=== PATIENT | male | born 1950 | race Caucasian/White ===

== ENCOUNTER 2021-07-11 13:10 | Inpatient (IN) ==
[2021-07-11] MEDS ORDERED: methylPREDNISolone 125 mg 2 ML VIAL IV ONE (14:37)
[2021-07-11] MEDS ORDERED: Albuterol (2.5 MG) 0.5 % CONC 0.5 ML NEB.SOLN INH ONE (14:37)
[2021-07-11] MEDS ORDERED: guaiFENesin/CODIENE 100mg/10mg 5 ML UDC PO ONE (14:40)
[2021-07-11] MEDS ORDERED: Lactated Ringers 1000 ml BAG 1,000 ML IV ONE ×2 (14:40→15:18)
[2021-07-11] MEDS ORDERED: Diltiazem IV push/loading dose 5 MG/ML 5 ML vial (25 mg) IV SLOW PU ONE (15:04)
[2021-07-11 15:44] LABS: ABS Basophils 0.1 10^3/ul (0-0.2); ABS Monocytes 0.8 10^3/ul (0-0.8); Eosinophil % 0.4 %; Hematocrit 41 % (42-52); Hemoglobin 14.1 g/dL (14.0-18.0); Lymphocyte % 9.5 %; Mean Corpuscular HGB Conc 35 g/dL (31-36); Mean Corpuscular Hemoglobin 30 pg (27-31); Mean Corpuscular Volume 86 fL (80-94); Mean Platelet Volume 8.2 fL (7.4-10.4); Platelet Count 218 10^3/uL (150-450); Red Blood Count 4.77 10^6 /uL (4.18-5.48); Red Cell Distribution Width 14 % (10-15); White Blood Count 11.1 10^3/uL (3.5-10.8)
[2021-07-11 15:56] LABS: ALT 11 U/L (7-52); AST 14 U/L (13-39); Albumin/Globulin Ratio 1.2 (1-3); Alkaline Phosphatase 67 U/L (35-149); Anion Gap 9 mmol/L (2-11); Blood Urea Nitrogen 13 mg/dL (6-24); CO2 Carbon Dioxide 24 mmol/L (22-32); Calcium 9.1 mg/dL (8.6-10.3); Chloride 103 mmol/L (101-111); Globulin 3.4 g/dL (2-4); Glucose 115 mg/dL (70-100); Potassium 3.6 mmol/L (3.5-5.0); Sodium 136 mmol/L (135-145); Total Protein 7.4 g/dL (6.4-8.9)
[2021-07-11 15:57] LABS: Influenza A Molecular Negative (Negative); Influenza B Molecular Negative (Negative)
[2021-07-11] MEDS ORDERED: Diltiazem IV BAG D5W Premix 125 MG/125 ML BAG IV SCH (16:00)
[2021-07-11 16:04] LABS: Rapid COVID-19 Molecular Undetected (Undetected)
[2021-07-11] MEDS ORDERED: Iohexol 350 (CONTRAST) 500 ML MDV IV ONE (16:05)
[2021-07-11] MEDS ORDERED: Metoprolol Tartrate 5 mg VIAL 5 ml VIAL (1 mg/ml) IV ONE (17:34)
[2021-07-11 17:57] LABS: PCO2 Arterial 34 mmHg (35-45); PO2 Arterial 66 mmHg (80-100)
[2021-07-11] MEDS ORDERED: Furosemide 40 mg/4 ml IV VIAL IV ONE (18:07)
[2021-07-11] MEDS ORDERED: Potassium Chlor 20 meq TAB.ER PO ONE (20:18)
[2021-07-11] MEDS ORDERED: Azithromycin 500 mg/250 ml NS 500 MG/250 ML BAG IVPB ONE (20:32)
[2021-07-11 21:10] LABS: Magnesium 1.7 mg/dL (1.9-2.7)
[2021-07-11] MEDS ORDERED: Magnesium Sulfate IV 3 GM in NS 0.9% 100 ml BAG 100 ML IVPB ONE (21:13)
[2021-07-11 22:29] LABS: Troponin I 0.01 ng/mL (<0.03)
[2021-07-11] MEDS: cefTRIAXone 1 gm/50 mL NS BAG 1 GM/50 ML BAG IVPB SCH (22:35)
[2021-07-11] MEDS: Albuterol HFA INHALER 8 gm MDI INH PRN (22:59)
[2021-07-12] MEDS: Fluticasone NASAL SPRAY 50MCG 16 gm SPRAY BTL INTRANASAL SCH ×2 (00:57→09:38)
[2021-07-12 05:56] LABS: ABS Lymphocytes 0.9 10^3/ul (1.0-4.8); ABS Monocytes 0.3 10^3/ul (0-0.8); ABS Neutrophils 12.4 10^3/ul (1.5-7.7); Hematocrit 40 % (42-52); Hemoglobin 13.5 g/dL (14.0-18.0); Lymphocyte % 6.7 %; Mean Corpuscular HGB Conc 34 g/dL (31-36); Mean Corpuscular Hemoglobin 29 pg (27-31); Mean Corpuscular Volume 87 fL (80-94); Mean Platelet Volume 8.5 fL (7.4-10.4); Platelet Count 242 10^3/uL (150-450); Red Blood Count 4.61 10^6 /uL (4.18-5.48); Red Cell Distribution Width 14 % (10-15); White Blood Count 13.6 10^3/uL (3.5-10.8)
[2021-07-12] MEDS ORDERED: Enoxaparin 100 MG/ML SYR SUBCUT SCH (06:00)
[2021-07-12 06:07] LABS: Calcium 9.2 mg/dL (8.6-10.3); Magnesium 2.6 mg/dL (1.9-2.7); Phosphorus 2.2 mg/dL (2.5-5.0); Potassium 4.2 mmol/L (3.5-5.0)
[2021-07-12] MEDS: Albuterol HFA INHALER 8 gm MDI INH PRN ×2 (07:27→12:25)
[2021-07-12] MEDS: DULoxetine DR 60 mg CAP PO SCH (08:06)
[2021-07-12] MEDS: Sucralfate 1 gm SUSP 1 GM/10 ML UDC PO SCH ×3 (08:07→19:49)
[2021-07-12] MEDS ORDERED: CMCS:FLUTICAS/UMECLI/VILANT 100-62.5-25 MDI (NF) INH SCH (09:00)
[2021-07-12] MEDS: Acetaminop/Codeine 300mg/30mg TAB PO PRN ×3 (09:03→19:54)
[2021-07-12] MEDS ORDERED: Perflutren Lipid Microsphere 3 ML VIAL ONE (09:17)
[2021-07-12] MEDS ORDERED: Albuterol/Ipratropium NEB.SOL (2.5/0.5 MG) 3 ML NEB.SOLN INH PRN (17:09)
[2021-07-12] MEDS ORDERED: Metoprolol Tartrate 5 mg VIAL 5 ml VIAL (1 mg/ml) IV ONE (17:12)
[2021-07-12] MEDS: methylPREDNISolone SOD 40 mg/ml 1 ml VIAL IV SCH (17:35)
[2021-07-12] MEDS: cefTRIAXone 1 gm/50 mL NS BAG 1 GM/50 ML BAG IVPB SCH (19:50)
[2021-07-12] MEDS: Albuterol/Ipratropium NEB.SOL (2.5/0.5 MG) 3 ML NEB.SOLN INH PRN (21:47)
[2021-07-13] MEDS: Benzocaine/Menthol LOZ PO PRN ×2 (02:11→20:20)
[2021-07-13] MEDS: Acetaminop/Codeine 300mg/30mg TAB PO PRN ×4 (02:12→20:20)
[2021-07-13] MEDS: methylPREDNISolone SOD 40 mg/ml 1 ml VIAL IV SCH ×3 (02:12→17:39)
[2021-07-13] MEDS ORDERED: Morphine 2 MG/ML SYRINGE IV ONE (05:12)
[2021-07-13 05:15] LABS: ABS Lymphocytes 0.9 10^3/ul (1.0-4.8); ABS Monocytes 0.5 10^3/ul (0-0.8); ABS Neutrophils 15.7 10^3/ul (1.5-7.7); Hematocrit 40 % (42-52); Hemoglobin 13.4 g/dL (14.0-18.0); Lymphocyte % 5.1 %; Mean Corpuscular HGB Conc 33 g/dL (31-36); Mean Corpuscular Hemoglobin 29 pg (27-31); Mean Corpuscular Volume 86 fL (80-94); Platelet Count 308 10^3/uL (150-450); Red Blood Count 4.68 10^6 /uL (4.18-5.48); Red Cell Distribution Width 14 % (10-15); White Blood Count 17.1 10^3/uL (3.5-10.8)
[2021-07-13 05:32] LABS: Calcium 9.2 mg/dL (8.6-10.3); Magnesium 2.3 mg/dL (1.9-2.7); Potassium 4.7 mmol/L (3.5-5.0)
[2021-07-13] MEDS: Albuterol/Ipratropium NEB.SOL (2.5/0.5 MG) 3 ML NEB.SOLN INH PRN (05:32)
[2021-07-13 06:30] LABS: Troponin I 0.01 ng/mL (<0.03)
[2021-07-13] MEDS: Fluticasone NASAL SPRAY 50MCG 16 gm SPRAY BTL INTRANASAL SCH (08:33)
[2021-07-13] MEDS: DULoxetine DR 60 mg CAP PO SCH (08:33)
[2021-07-13] MEDS: Sucralfate 1 gm SUSP 1 GM/10 ML UDC PO SCH ×2 (09:09→17:37)
[2021-07-13] MEDS: Albuterol HFA INHALER 8 gm MDI INH PRN ×2 (11:52→15:53)
[2021-07-13] MEDS ORDERED: VERAPAMIL 2.5 MG/ML 2 ML VIAL ** 5 mg/2 ml IV PUSH ONE (12:17)
[2021-07-13] MEDS ORDERED: Furosemide 40 mg/4 ml IV VIAL IV SLOW PU ONE (12:24)
[2021-07-13] MEDS: guaiFENesin/CODIENE 100mg/10mg 5 ML UDC PO PRN ×2 (13:00→20:20)
[2021-07-13] MEDS: VERAPAMIL IV SCH ×2 (18:11→22:30)
[2021-07-13] MEDS: D5W IV SCH ×2 (18:11→22:30)
[2021-07-13] MEDS ORDERED: Albuterol/Ipratropium NEB.SOL (2.5/0.5 MG) 3 ML NEB.SOLN INH PRN (18:16)
[2021-07-13] MEDS: cefTRIAXone 1 gm/50 mL NS BAG 1 GM/50 ML BAG IVPB SCH (20:21)
[2021-07-13] MEDS: Albuterol/Ipratropium NEB.SOL (2.5/0.5 MG) 3 ML NEB.SOLN INH SCH (21:58)
[2021-07-13] MEDS ORDERED: Albuterol/Ipratropium NEB.SOL (2.5/0.5 MG) 3 ML NEB.SOLN ONE (23:53)
[2021-07-14] MEDS ORDERED: Al Hydrox/Mg Hydrox/Simet LIQ 30 ML UDC PO PRN (00:27)
[2021-07-14] MEDS ORDERED: Magnesium Hydroxide LIQ 30 ML UDC PO PRN (00:27)
[2021-07-14] MEDS: Albuterol/Ipratropium NEB.SOL (2.5/0.5 MG) 3 ML NEB.SOLN INH SCH ×7 (00:48→23:50)
[2021-07-14] MEDS: Polyethylene Glycol 3350 17 GM PACKET PO SCH ×2 (02:20→09:58)
[2021-07-14] MEDS: methylPREDNISolone SOD 40 mg/ml 1 ml VIAL IV SCH ×3 (02:21→16:14)
[2021-07-14 05:19] LABS: Calcium 9.3 mg/dL (8.6-10.3); Magnesium 2.3 mg/dL (1.9-2.7); Phosphorus 4.2 mg/dL (2.5-5.0); Potassium 4.5 mmol/L (3.5-5.0)
[2021-07-14 05:38] LABS: ABS Lymphocytes 0.7 10^3/ul (1.0-4.8); ABS Monocytes 0.7 10^3/ul (0-0.8); ABS Neutrophils 13.7 10^3/ul (1.5-7.7); Hematocrit 39 % (42-52); Hemoglobin 13.2 g/dL (14.0-18.0); Lymphocyte % 4.7 %; Mean Corpuscular HGB Conc 34 g/dL (31-36); Mean Corpuscular Hemoglobin 29 pg (27-31); Mean Corpuscular Volume 87 fL (80-94); Mean Platelet Volume 8.8 fL (7.4-10.4); Platelet Count 293 10^3/uL (150-450); Red Blood Count 4.53 10^6 /uL (4.18-5.48); Red Cell Distribution Width 14 % (10-15); White Blood Count 15.1 10^3/uL (3.5-10.8)
[2021-07-14] MEDS ORDERED: fentaNYL 100 mcg/2 ml 50 MCG/ML VIAL ONE (07:50)
[2021-07-14] MEDS ORDERED: Midazolam 5 mg/5 ml VIAL 1 mg/ml 5 ml VIAL (5 mg) ONE (07:50)
[2021-07-14] MEDS ORDERED: Naloxone 0.4 mg VIAL 0.4 mg/ml 1 ml VIAL ONE (07:50)
[2021-07-14] MEDS ORDERED: Flumazenil 0.5 mg/5 ml 0.1 MG/ML 5 ml VIAL ONE (07:51)
[2021-07-14] MEDS ORDERED: Furosemide 40 mg/4 ml IV VIAL ONE (09:05)
[2021-07-14] MEDS: DULoxetine DR 60 mg CAP PO SCH (09:57)
[2021-07-14] MEDS: Fluticasone NASAL SPRAY 50MCG 16 gm SPRAY BTL INTRANASAL SCH (09:58)
[2021-07-14] MEDS: Sucralfate 1 gm SUSP 1 GM/10 ML UDC PO SCH ×3 (09:58→16:14)
[2021-07-14] MEDS: guaiFENesin/CODIENE 100mg/10mg 5 ML UDC PO PRN (11:55)
[2021-07-14] MEDS: Magnesium Hydroxide LIQ 30 ML UDC PO SCH (12:23)
[2021-07-14] MEDS: Acetaminop/Codeine 300mg/30mg TAB PO PRN ×2 (16:14→21:58)
[2021-07-14] MEDS: Benzocaine/Menthol LOZ PO PRN (16:15)
[2021-07-14] MEDS: cefTRIAXone 1 gm/50 mL NS BAG 1 GM/50 ML BAG IVPB SCH (22:00)
[2021-07-15] MEDS: methylPREDNISolone SOD 40 mg/ml 1 ml VIAL IV SCH ×2 (02:51→08:51)
[2021-07-15] MEDS: Albuterol/Ipratropium NEB.SOL (2.5/0.5 MG) 3 ML NEB.SOLN INH SCH ×4 (03:15→12:13)
[2021-07-15] MEDS: Acetaminop/Codeine 300mg/30mg TAB PO PRN ×4 (04:43→21:20)
[2021-07-15 04:45] LABS: Hematocrit 40 % (42-52); Hemoglobin 13.7 g/dL (14.0-18.0); Mean Corpuscular HGB Conc 34 g/dL (31-36); Mean Corpuscular Hemoglobin 29 pg (27-31); Mean Corpuscular Volume 86 fL (80-94); Mean Platelet Volume 7.8 fL (7.4-10.4); Platelet Count 254 10^3/uL (150-450); Red Blood Count 4.65 10^6 /uL (4.18-5.48); Red Cell Distribution Width 14 % (10-15); White Blood Count 11.2 10^3/uL (3.5-10.8)
[2021-07-15 05:01] LABS: Calcium 8.9 mg/dL (8.6-10.3); Magnesium 2.7 mg/dL (1.9-2.7); Phosphorus 3.9 mg/dL (2.5-5.0); Potassium 4.1 mmol/L (3.5-5.0)
[2021-07-15] MEDS: Benzocaine/Menthol LOZ PO PRN ×2 (05:34→23:14)
[2021-07-15 06:07] LABS: ABS Lymphocytes 0.8 10^3/ul (1.0-4.8); ABS Monocytes 0.7 10^3/ul (0-0.8); ABS Neutrophils 9.6 10^3/ul (1.5-7.7); Eosinophil % 0.1 %; Lymphocyte % 7.1 %; Nucleated Red Blood Cells % 0.1
[2021-07-15] MEDS: DULoxetine DR 60 mg CAP PO SCH (08:51)
[2021-07-15] MEDS: Sucralfate 1 gm SUSP 1 GM/10 ML UDC PO SCH ×3 (08:51→16:54)
[2021-07-15] MEDS: Fluticasone NASAL SPRAY 50MCG 16 gm SPRAY BTL INTRANASAL SCH (08:51)
[2021-07-15] MEDS: Magnesium Hydroxide LIQ 30 ML UDC PO SCH (08:52)
[2021-07-15] MEDS: Polyethylene Glycol 3350 17 GM PACKET PO SCH (08:52)
[2021-07-15] MEDS: FLUTICAS/UMECLI/VILANT 100-62.5-25 MDI (NF) INH SCH (11:38)
[2021-07-15] MEDS: Albuterol/Ipratropium NEB.SOL (2.5/0.5 MG) 3 ML NEB.SOLN INH PRN (15:28)
[2021-07-15] MEDS: cefTRIAXone 1 gm/50 mL NS BAG 1 GM/50 ML BAG IVPB SCH (21:05)
[2021-07-15] MEDS: guaiFENesin/CODIENE 100mg/10mg 5 ML UDC PO PRN (23:14)
[2021-07-16] MEDS: Albuterol HFA INHALER 8 gm MDI INH PRN ×2 (00:21→08:31)
[2021-07-16 05:52] LABS: Hematocrit 41 % (42-52); Hemoglobin 13.9 g/dL (14.0-18.0); Mean Corpuscular HGB Conc 34 g/dL (31-36); Mean Corpuscular Hemoglobin 30 pg (27-31); Mean Corpuscular Volume 86 fL (80-94); Mean Platelet Volume 7.5 fL (7.4-10.4); Platelet Count 236 10^3/uL (150-450); Red Blood Count 4.73 10^6 /uL (4.18-5.48); Red Cell Distribution Width 14 % (10-15); White Blood Count 11.9 10^3/uL (3.5-10.8)
[2021-07-16 06:10] LABS: Calcium 8.7 mg/dL (8.6-10.3); Magnesium 2.7 mg/dL (1.9-2.7); Phosphorus 2.9 mg/dL (2.5-5.0); Potassium 4.2 mmol/L (3.5-5.0)
[2021-07-16 06:30] LABS: ABS Basophils 0.1 10^3/ul (0-0.2); ABS Lymphocytes 1.3 10^3/ul (1.0-4.8); ABS Monocytes 1.3 10^3/ul (0-0.8); ABS Neutrophils 9.2 10^3/ul (1.5-7.7); Eosinophil % 0.1 %; Lymphocyte % 11.1 %; Nucleated Red Blood Cells % 0.2
[2021-07-16] MEDS: DULoxetine DR 60 mg CAP PO SCH (07:43)
[2021-07-16] MEDS: Polyethylene Glycol 3350 17 GM PACKET PO SCH (07:44)
[2021-07-16] MEDS: Fluticasone NASAL SPRAY 50MCG 16 gm SPRAY BTL INTRANASAL SCH (07:44)
[2021-07-16] MEDS: Sucralfate 1 gm SUSP 1 GM/10 ML UDC PO SCH ×3 (07:44→16:28)
[2021-07-16] MEDS: Magnesium Hydroxide LIQ 30 ML UDC PO SCH (07:44)
[2021-07-16] MEDS: Acetaminop/Codeine 300mg/30mg TAB PO PRN ×3 (07:48→18:18)
[2021-07-16] MEDS: FLUTICAS/UMECLI/VILANT 100-62.5-25 MDI (NF) INH SCH (08:31)
[2021-07-16] MEDS: Albuterol/Ipratropium NEB.SOL (2.5/0.5 MG) 3 ML NEB.SOLN INH PRN ×2 (14:09→21:49)
[2021-07-16] MEDS: guaiFENesin/CODIENE 100mg/10mg 5 ML UDC PO PRN (20:21)
[2021-07-16] MEDS: cefTRIAXone 1 gm/50 mL NS BAG 1 GM/50 ML BAG IVPB SCH (20:21)
[2021-07-17] MEDS: Magnesium Hydroxide LIQ 30 ML UDC PO SCH (07:53)
[2021-07-17] MEDS: Fluticasone NASAL SPRAY 50MCG 16 gm SPRAY BTL INTRANASAL SCH (07:53)
[2021-07-17] MEDS: Sucralfate 1 gm SUSP 1 GM/10 ML UDC PO SCH (07:53)
[2021-07-17] MEDS: DULoxetine DR 60 mg CAP PO SCH (07:54)
[2021-07-17] MEDS: Acetaminop/Codeine 300mg/30mg TAB PO PRN (07:55)
[2021-07-17] MEDS: Albuterol/Ipratropium NEB.SOL (2.5/0.5 MG) 3 ML NEB.SOLN INH PRN (08:00)
[2021-07-17] MEDS: Polyethylene Glycol 3350 17 GM PACKET PO SCH (08:06)
[2021-07-17] MEDS ORDERED: Aspirin EC 81 mg TAB.EC (enteric coated) PO SCH (09:00)
[2021-07-17] MEDS: Albuterol HFA INHALER 8 gm MDI INH PRN (09:25)
[2021-07-17] MEDS: FLUTICAS/UMECLI/VILANT 100-62.5-25 MDI (NF) INH SCH (09:26)
[2021-07-17 14:25] VITALS: BP 147/66
== END 2021-07-17 14:25 | disposition home or self-care (01) | DRG 201 ==
LOC: ED 13:10 → ICU 20:30 → SUATTDRO 20:30 → ICU 20:57 → MEDTELE 07-15 17:53
PROVIDERS: ADMIT Surgery Surgical Critical Care; ATTEND Internal Medicine

== ENCOUNTER 2022-04-13 07:24 | Observation (INO) ==
[2022-04-13] MEDS ORDERED: Albuterol/Ipratropium NEB.SOL (2.5/0.5 MG) 3 ML NEB.SOLN INH ONE ×3 (07:49→09:55)
[2022-04-13 08:04] LABS: Hematocrit 39 % (42-52); Hemoglobin 12.7 g/dL (14.0-18.0); Mean Corpuscular HGB Conc 32 g/dL (31-36); Mean Corpuscular Hemoglobin 25 pg (27-31); Mean Corpuscular Volume 78 fL (80-94); Mean Platelet Volume 7.2 fL (7.4-10.4); Platelet Count 259 10^3/uL (150-450); Red Blood Count 5.07 10^6 /uL (4.18-5.48); Red Cell Distribution Width 17 % (10-15); White Blood Count 10.6 10^3/uL (3.5-10.8)
[2022-04-13] MEDS ORDERED: Acetaminophen IV 1 GM/100ML 1,000 MG/100 ML BAG IV ONE (08:28)
[2022-04-13] MEDS ORDERED: methylPREDNISolone SOD SUCC 125 mg 2 ML VIAL IV ONE (08:28)
[2022-04-13] MEDS ORDERED: Morphine 4 MG/ML VIAL (1 ml) IV ONE ×2 (08:28→09:41)
[2022-04-13] MEDS ORDERED: NS 0.9% 1000 ml BAG 1,000 ML IV SCH ×2 (08:30→16:18)
[2022-04-13 08:40] LABS: Albumin 3.9 g/dL (3.2-5.2); Albumin/Globulin Ratio 1.4 (1-3); Calcium 9.6 mg/dL (8.6-10.3); Globulin 2.7 g/dL (2-4); Potassium 4.3 mmol/L (3.5-5.0); Total Bilirubin 0.5 mg/dL (0.2-1.0); Total Protein 6.6 g/dL (6.4-8.9); eGFR CKD-EPI 65.6 (>60)
[2022-04-13 08:44] LABS: ABS Basophils 0.1 10^3/ul (0-0.2); ABS Eosinophils 0.1 10^3/ul (0-0.6); ABS Lymphocytes 1.8 10^3/ul (1.0-4.8); ABS Monocytes 0.5 10^3/ul (0-0.8); ABS Neutrophils 8.1 10^3/ul (1.5-7.7); Eosinophil % 1.1 %; Lymphocyte % 16.9 %; Nucleated Red Blood Cells % 0.1
[2022-04-13 10:12] LABS: High Sensitivity Troponin 1 Hr 19 pg/mL (<20)
[2022-04-13] MEDS ORDERED: Iohexol 350 (CONTRAST) 500 ML MDV IV ONE (11:46)
[2022-04-13] MEDS ORDERED: fentaNYL 100 mcg/2 ml 50 MCG/ML VIAL IV SLOW PU ONE (11:46)
[2022-04-13] MEDS ORDERED: Albuterol HFA INHALER 8 gm MDI INH PRN (14:19)
[2022-04-13] MEDS ORDERED: HYDROCODONE HOMATROPINE PO PRN (14:28)
[2022-04-13] MEDS ORDERED: Albuterol/Ipratropium NEB.SOL (2.5/0.5 MG) 3 ML NEB.SOLN INH PRN (14:28)
[2022-04-13] MEDS: Aspirin EC 81 mg TAB.EC (enteric coated) PO SCH (15:03)
[2022-04-13] MEDS: Sucralfate 1 gm SUSP 1 GM/10 ML UDC PO SCH (15:04)
[2022-04-13] MEDS: FLUTICAS/UMECLI/VILANT 100-62.5-25 MDI (NF) INH SCH (15:04)
[2022-04-13] MEDS ORDERED: fentaNYL 100 mcg/2 ml 50 MCG/ML VIAL IV SLOW PU PRN (16:20)
[2022-04-13 16:45] LABS: C Reactive Protein 7.52 mg/L (<8.01)
[2022-04-13] MEDS ORDERED: Furosemide 20 mg/2 ml IV VIAL IV ONE (21:17)
[2022-04-13] MEDS ORDERED: Saline NASAL SPRAY 0.65% BTL BOTH NARES PRN (21:18)
[2022-04-13] MEDS: Fluticasone NASAL SPRAY 50MCG 16 gm SPRAY BTL INTRANASAL SCH (22:03)
[2022-04-13] MEDS: Albuterol/Ipratropium NEB.SOL (2.5/0.5 MG) 3 ML NEB.SOLN INH SCH (23:34)
[2022-04-14] MEDS: Sucralfate 1 gm SUSP 1 GM/10 ML UDC PO SCH ×3 (00:15→13:50)
[2022-04-14] MEDS: Albuterol/Ipratropium NEB.SOL (2.5/0.5 MG) 3 ML NEB.SOLN INH SCH ×4 (03:10→15:16)
[2022-04-14 06:04] LABS: PCO2 Arterial 42 mmHg (35-45); PO2 Arterial 120 mmHg (80-100)
[2022-04-14 06:59] LABS: ABS Lymphocytes 0.5 10^3/ul (1.0-4.8); ABS Monocytes 0.2 10^3/ul (0-0.8); ABS Neutrophils 10.5 10^3/ul (1.5-7.7); Hematocrit 34 % (42-52); Hemoglobin 11.1 g/dL (14.0-18.0); Lymphocyte % 4.3 %; Mean Corpuscular HGB Conc 32 g/dL (31-36); Mean Corpuscular Hemoglobin 25 pg (27-31); Mean Corpuscular Volume 78 fL (80-94); Mean Platelet Volume 7.7 fL (7.4-10.4); Platelet Count 233 10^3/uL (150-450); Red Blood Count 4.42 10^6 /uL (4.18-5.48); Red Cell Distribution Width 17 % (10-15); White Blood Count 11.2 10^3/uL (3.5-10.8)
[2022-04-14 07:11] LABS: Albumin 3.6 g/dL (3.2-5.2); Albumin/Globulin Ratio 1.6 (1-3); Calcium 9.2 mg/dL (8.6-10.3); Globulin 2.3 g/dL (2-4); Potassium 4.8 mmol/L (3.5-5.0); Total Bilirubin 0.4 mg/dL (0.2-1.0); Total Protein 5.9 g/dL (6.4-8.9); eGFR CKD-EPI 66.2 (>60)
[2022-04-14] MEDS: FLUTICAS/UMECLI/VILANT 100-62.5-25 MDI (NF) INH SCH (07:17)
[2022-04-14] MEDS: Fluticasone NASAL SPRAY 50MCG 16 gm SPRAY BTL INTRANASAL SCH (09:05)
[2022-04-14] MEDS: Aspirin EC 81 mg TAB.EC (enteric coated) PO SCH (09:05)
[2022-04-14 15:56] VITALS: BP 134/67
== END 2022-04-14 17:55 | disposition home or self-care (01) ==
LOC: ED 07:24 → MED 19:51 → INTOOBSV 20:03
PROVIDERS: ADMIT Internal Medicine; ATTEND Internal Medicine

== ENCOUNTER 2023-09-07 13:52 | Inpatient (IN) ==
[2023-09-07] MEDS ORDERED: Albuterol 2.5mg/3 ml (0.083%) NEB.SOLN INH ONE ×2 (14:31→14:49)
[2023-09-07] MEDS ORDERED: methylPREDNISolone SOD SUCC 125 mg 2 ML VIAL IV ONE (14:31)
[2023-09-07 14:46] LABS: Hemoglobin 15.6 g/dL (13.2-16.3); Mean Corpuscular Hemoglobin 25.4 pg (27-33); Mean Corpuscular Hgb Conc 33.2 g/dL (31-36); Mean Corpuscular Volume 76.5 fL (80-97); Mean Platelet Volume 8.3 fL (7.5-11.2); Platelet Count 243 10^3/uL (150-450); Red Blood Count 6.15 10^6/uL (4.06-5.63); Red Cell Distribution Width 18.5 % (12-17); White Blood Count 14.2 10^3/uL (3.6-10.2)
[2023-09-07 15:05] LABS: Albumin 4.6 g/dL (3.2-5.2); Albumin/Globulin Ratio 1.2 (1-3); Calcium 9.4 mg/dL (8.6-10.3); Creatinine, Serum 1.83 mg/dL (0.67-1.17); Globulin 3.9 g/dL (2-4); Potassium 4.3 mmol/L (3.5-5.0); Total Protein 8.5 g/dL (6.4-8.9); eGFR CKD-EPI 38.2 (>60)
[2023-09-07 15:36] LABS: ABS Lymphocytes 0.7 10^3/uL (1.0-4.8); ABS Monocytes 1.8 10^3/uL (0.0-1.1); ABS Neutrophils 11.7 10^3/uL (1.5-7.6); ABS Nucleated RBC 0.02 10^3/ul; Lymphocyte % 4.9 %; Microcytosis 1+; Nucleated Red Blood Cells % 0.2 %/100WBC (0.0-0.8)
[2023-09-07 16:53] LABS: PCO2 Arterial 29 mmHg (35-45); PO2 Arterial 88 mmHg (80-100)
[2023-09-07] MEDS ORDERED: Lactated Ringers 1000 ml BAG 1,000 ML IV ONE (17:11)
[2023-09-07] MEDS ORDERED: cefTRIAXone 1 gm/50 mL D5W 1 GM/50 ML BAG IV SCH (17:15)
[2023-09-07] MEDS ORDERED: DOXYcycline 100 MG in NS 0.9% 250 ml 250 ML IVPB ONE (18:00)
[2023-09-07 18:20] LABS: Resp Rate 22
[2023-09-07 18:21] LABS: PCO2 Arterial 33 mmHg (35-45); PO2 Arterial 314 mmHg (80-100)
[2023-09-07 18:28] LABS: Urine Potassium Concentration 73.3 mmol/L
[2023-09-07 19:06] LABS: Osmolality Serum 285 mOsm/kg (275-295)
[2023-09-07 19:06] LABS: Urine Osmo 497 mOsm/kg (150-1150)
[2023-09-07] MEDS: cefTRIAXone 2 gm/50 mL D5W 2 GM/50 ML BAG IV SCH (19:51)
[2023-09-07 20:47] LABS: Urine Appearance Cloudy; Urine Bilirubin Negative (Negative); Urine Blood 1+ (Negative); Urine Color Amber; Urine Glucose Negative (Negative); Urine Ketones Negative (Negative); Urine Nitrite Negative (Negative); Urine Protein 3+(>=500 mg/dL) (Negative); Urine Specific Gravity 1.019 (1.002-1.030); Urine Urobilinogen Negative (Negative)
[2023-09-07 20:57] LABS: Urine Bacteria Absent (Absent); Urine Red Blood Cell Trace(0-2/hpf) (Absent); Urine White Blood Cell Trace(0-5/hpf) (Absent)
[2023-09-07] MEDS: Albuterol 2.5mg/3 ml (0.083%) NEB.SOLN INH SCH (21:13)
[2023-09-07] MEDS ORDERED: Ondansetron 4 mg VIAL 2 MG/ML 2 ml VIAL IV ONE (21:27)
[2023-09-07] MEDS: methylPREDNISolone SOD SUCC 40 mg/ml 1 ml VIAL IV SCH (22:51)
[2023-09-07] MEDS: Pantoprazole VIAL 40 MG VIAL IV SCH (22:56)
[2023-09-08] MEDS: Albuterol 2.5mg/3 ml (0.083%) NEB.SOLN INH SCH ×4 (01:56→19:37)
[2023-09-08] MEDS: methylPREDNISolone SOD SUCC 40 mg/ml 1 ml VIAL IV SCH ×3 (05:41→19:59)
[2023-09-08 05:55] LABS: ABS Lymphocytes 0.5 10^3/uL (1.0-4.8); ABS Monocytes 0.6 10^3/uL (0.0-1.1); ABS Neutrophils 9.2 10^3/uL (1.5-7.6); ABS Nucleated RBC 0.01 10^3/ul; Hematocrit 42.2 % (38-53); Hemoglobin 14.1 g/dL (13.2-16.3); Lymphocyte % 5.3 %; Mean Corpuscular Hemoglobin 25.5 pg (27-33); Mean Corpuscular Hgb Conc 33.4 g/dL (31-36); Mean Corpuscular Volume 76.3 fL (80-97); Mean Platelet Volume 8.3 fL (7.5-11.2); Nucleated Red Blood Cells % 0.1 %/100WBC (0.0-0.8); Platelet Count 208 10^3/uL (150-450); Red Blood Count 5.52 10^6/uL (4.06-5.63); White Blood Count 10.3 10^3/uL (3.6-10.2)
[2023-09-08 06:13] LABS: Albumin 3.8 g/dL (3.2-5.2); Albumin/Globulin Ratio 1.1 (1-3); C Reactive Protein 276.43 mg/L (<8.01); Calcium 8.5 mg/dL (8.6-10.3); Creatinine, Serum 2.04 mg/dL (0.67-1.17); Globulin 3.6 g/dL (2-4); Magnesium 2.3 mg/dL (1.9-2.7); Potassium 4.3 mmol/L (3.5-5.0); Total Bilirubin 0.5 mg/dL (0.2-1.0); Total Protein 7.4 g/dL (6.4-8.9); eGFR CKD-EPI 33.6 (>60)
[2023-09-08] MEDS: HYDROcodone/ACET. 7.5/325 LIQ 15 ML UDC PO PRN (15:34)
[2023-09-08] MEDS: cefTRIAXone 2 gm/50 mL D5W 2 GM/50 ML BAG IV SCH (18:23)
[2023-09-08] MEDS ORDERED: Lactated Ringers 1000 ml BAG 1,000 ML IV SCH (19:00)
[2023-09-08] MEDS: Pantoprazole VIAL 40 MG VIAL IV SCH (21:36)
[2023-09-09] MEDS: HYDROcodone/ACET. 7.5/325 LIQ 15 ML UDC PO PRN ×2 (00:25→08:21)
[2023-09-09] MEDS: Albuterol 2.5mg/3 ml (0.083%) NEB.SOLN INH SCH ×4 (00:58→19:10)
[2023-09-09 04:37] LABS: Calcium 8.3 mg/dL (8.6-10.3); Creatinine, Serum 2.33 mg/dL (0.67-1.17); eGFR CKD-EPI 28.6 (>60)
[2023-09-09] MEDS: methylPREDNISolone SOD SUCC 40 mg/ml 1 ml VIAL IV SCH ×2 (08:19→21:08)
[2023-09-09] MEDS ORDERED: Sulfur Hexaflouride MICROSPHR 25 MG VIAL ONE (10:38)
[2023-09-09] MEDS: cefTRIAXone 2 gm/50 mL D5W 2 GM/50 ML BAG IV SCH (18:00)
[2023-09-09 18:41] LABS: Calcium 8.6 mg/dL (8.6-10.3); Creatinine, Serum 2.32 mg/dL (0.67-1.17); Potassium 4.2 mmol/L (3.5-5.0); eGFR CKD-EPI 28.8 (>60)
[2023-09-09] MEDS: Pantoprazole VIAL 40 MG VIAL IV SCH (21:08)
[2023-09-10] MEDS: Albuterol 2.5mg/3 ml (0.083%) NEB.SOLN INH SCH ×4 (00:59→20:23)
[2023-09-10 07:10] LABS: Hematocrit 35.8 % (38-53); Hemoglobin 12.1 g/dL (13.2-16.3); Mean Corpuscular Hemoglobin 25.3 pg (27-33); Mean Corpuscular Hgb Conc 33.7 g/dL (31-36); Mean Corpuscular Volume 75.2 fL (80-97); Mean Platelet Volume 8.7 fL (7.5-11.2); Platelet Count 159 10^3/uL (150-450); Red Blood Count 4.76 10^6/uL (4.06-5.63); Red Cell Distribution Width 17.8 % (12-17); White Blood Count 7.2 10^3/uL (3.6-10.2)
[2023-09-10 07:22] LABS: Albumin 3.6 g/dL (3.2-5.2); Albumin/Globulin Ratio 1.2 (1-3); Calcium 8.5 mg/dL (8.6-10.3); Creatinine, Serum 2.12 mg/dL (0.67-1.17); Globulin 3.1 g/dL (2-4); Magnesium 3.1 mg/dL (1.9-2.7); Potassium 4.4 mmol/L (3.5-5.0); Total Bilirubin 0.3 mg/dL (0.2-1.0); Total Protein 6.7 g/dL (6.4-8.9); eGFR CKD-EPI 32.1 (>60)
[2023-09-10] MEDS: methylPREDNISolone SOD SUCC 40 mg/ml 1 ml VIAL IV SCH ×2 (07:59→19:21)
[2023-09-10 08:26] LABS: ABS Lymphocytes 0.5 10^3/uL (1.0-4.8); ABS Monocytes 0.4 10^3/uL (0.0-1.1); ABS Neutrophils 6.3 10^3/uL (1.5-7.6); ABS Nucleated RBC 0.01 10^3/ul; Lymphocyte % 6.7 %; Nucleated Red Blood Cells % 0.2 %/100WBC (0.0-0.8)
[2023-09-10 08:27] LABS: RBC Morphology Normal (Normal)
[2023-09-10] MEDS ORDERED: CHLORPHENIRAMINE PO PRN (10:49)
[2023-09-10] MEDS ORDERED: [UNRECOGNIZED DRUG - OTHER] PO PRN (10:49)
[2023-09-10] MEDS ORDERED: HYDROCODONE PO PRN (10:49)
[2023-09-10] MEDS ORDERED: HYDROcodone/ACET. 7.5/325 LIQ 15 ML UDC PO ONE (13:18)
[2023-09-10] MEDS: cefTRIAXone 2 gm/50 mL D5W 2 GM/50 ML BAG IV SCH (18:38)
[2023-09-10] MEDS: HYDROcodone/ACET. 7.5/325 LIQ 15 ML UDC PO PRN (19:21)
[2023-09-10] MEDS: Pantoprazole VIAL 40 MG VIAL IV SCH (22:25)
[2023-09-11] MEDS: Albuterol 2.5mg/3 ml (0.083%) NEB.SOLN INH SCH ×4 (01:28→20:00)
[2023-09-11] MEDS: HYDROcodone/ACET. 7.5/325 LIQ 15 ML UDC PO PRN ×2 (05:41→17:26)
[2023-09-11 06:13] LABS: Hematocrit 35.6 % (38-53); Mean Corpuscular Hemoglobin 25.3 pg (27-33); Mean Corpuscular Hgb Conc 33.6 g/dL (31-36); Mean Corpuscular Volume 75.2 fL (80-97); Mean Platelet Volume 8.5 fL (7.5-11.2); Platelet Count 174 10^3/uL (150-450); Red Blood Count 4.74 10^6/uL (4.06-5.63); Red Cell Distribution Width 18.3 % (12-17); White Blood Count 8.6 10^3/uL (3.6-10.2)
[2023-09-11 06:28] LABS: Calcium 8.9 mg/dL (8.6-10.3); Creatinine, Serum 1.93 mg/dL (0.67-1.17); Magnesium 3.4 mg/dL (1.9-2.7); Potassium 4.3 mmol/L (3.5-5.0); eGFR CKD-EPI 35.9 (>60)
[2023-09-11 06:34] LABS: ABS Lymphocytes 0.6 10^3/uL (1.0-4.8); ABS Monocytes 0.5 10^3/uL (0.0-1.1); ABS Neutrophils 7.6 10^3/uL (1.5-7.6); ABS Nucleated RBC 0.01 10^3/ul; Lymphocyte % 6.5 %; Nucleated Red Blood Cells % 0.2 %/100WBC (0.0-0.8)
[2023-09-11 06:35] LABS: Microcytosis 1+
[2023-09-11] MEDS: methylPREDNISolone SOD SUCC 40 mg/ml 1 ml VIAL IV SCH ×2 (08:25→20:09)
[2023-09-11] MEDS: cefTRIAXone 2 gm/50 mL D5W 2 GM/50 ML BAG IV SCH (18:17)
[2023-09-11] MEDS: Pantoprazole VIAL 40 MG VIAL IV SCH (20:09)
[2023-09-12] MEDS: Albuterol 2.5mg/3 ml (0.083%) NEB.SOLN INH SCH ×2 (01:42→07:36)
[2023-09-12 05:56] LABS: Calcium 8.5 mg/dL (8.6-10.3); Creatinine, Serum 1.45 mg/dL (0.67-1.17); Magnesium 3.1 mg/dL (1.9-2.7); Potassium 4.5 mmol/L (3.5-5.0); eGFR CKD-EPI 50.6 (>60)
[2023-09-12 06:02] LABS: CKMB ng/mL 3.6 ng/mL (0.6-6.3)
[2023-09-12] MEDS: HYDROcodone/ACET. 7.5/325 LIQ 15 ML UDC PO PRN ×2 (06:32→17:30)
[2023-09-12] MEDS: methylPREDNISolone SOD SUCC 40 mg/ml 1 ml VIAL IV SCH ×2 (07:49→21:32)
[2023-09-12] MEDS: Dextran 70/Hypromellose Tears Eye Drops 15 ml BTL (for Artificials Tears) BOTH EYES PRN ×3 (12:37→21:45)
[2023-09-12] MEDS ORDERED: Polyethylene Glycol 3350 17 GM PACKET PO PRN (13:06)
[2023-09-12] MEDS ORDERED: Nystatin SUSPENSION 100,000 UNITS/ML UDC SWISH SPIT ONE (13:35)
[2023-09-12] MEDS: Senna TAB 8.6 mg TAB PO PRN ×2 (14:07→14:11)
[2023-09-12] MEDS: cefTRIAXone 2 gm/50 mL D5W 2 GM/50 ML BAG IV SCH (17:32)
[2023-09-12] MEDS: Pantoprazole VIAL 40 MG VIAL IV SCH (21:37)
[2023-09-13] MEDS: Albuterol 2.5mg/3 ml (0.083%) NEB.SOLN INH PRN ×2 (01:44→11:24)
[2023-09-13 06:12] LABS: Hematocrit 36.7 % (38-53); Hemoglobin 12.2 g/dL (13.2-16.3); Mean Corpuscular Hemoglobin 25.1 pg (27-33); Mean Corpuscular Hgb Conc 33.1 g/dL (31-36); Mean Corpuscular Volume 75.9 fL (80-97); Platelet Count 250 10^3/uL (150-450); Red Blood Count 4.84 10^6/uL (4.06-5.63); Red Cell Distribution Width 18.2 % (12-17); White Blood Count 14.7 10^3/uL (3.6-10.2)
[2023-09-13 06:24] LABS: Calcium 8.3 mg/dL (8.6-10.3); Creatinine, Serum 1.07 mg/dL (0.67-1.17); Magnesium 2.6 mg/dL (1.9-2.7); Potassium 5.4 mmol/L (3.5-5.0); eGFR CKD-EPI 72.8 (>60)
[2023-09-13 07:11] LABS: ABS Eosinophils 0.1 10^3/uL (0.0-0.5); ABS Lymphocytes 0.8 10^3/uL (1.0-4.8); ABS Monocytes 0.7 10^3/uL (0.0-1.1); ABS Neutrophils 13.2 10^3/uL (1.5-7.6); ABS Nucleated RBC 0.04 10^3/ul; Eosinophil % 0.4 %; Lymphocyte % 5.3 %; Nucleated Red Blood Cells % 0.3 %/100WBC (0.0-0.8); RBC Morphology Normal (Normal)
[2023-09-13] MEDS: HYDROcodone/ACET. 7.5/325 LIQ 15 ML UDC PO PRN ×2 (09:38→17:16)
[2023-09-13] MEDS: Dextran 70/Hypromellose Tears Eye Drops 15 ml BTL (for Artificials Tears) BOTH EYES PRN ×3 (09:39→17:17)
[2023-09-13] MEDS: Albuterol 2.5mg/3 ml (0.083%) NEB.SOLN INH SCH ×2 (13:40→19:34)
[2023-09-13] MEDS: Nystatin SUSPENSION 100,000 UNITS/ML UDC SWISH SPIT SCH ×2 (17:15→21:46)
[2023-09-13] MEDS: cefTRIAXone 2 gm/50 mL D5W 2 GM/50 ML BAG IV SCH (18:44)
[2023-09-13] MEDS: Pantoprazole VIAL 40 MG VIAL IV SCH (21:46)
[2023-09-14] MEDS: Albuterol 2.5mg/3 ml (0.083%) NEB.SOLN INH SCH ×3 (01:37→13:10)
[2023-09-14 06:18] LABS: Hematocrit 41.2 % (38-53); Hemoglobin 13.5 g/dL (13.2-16.3); Mean Corpuscular Hemoglobin 25.1 pg (27-33); Mean Corpuscular Hgb Conc 32.9 g/dL (31-36); Mean Corpuscular Volume 76.5 fL (80-97); Mean Platelet Volume 7.8 fL (7.5-11.2); Platelet Count 290 10^3/uL (150-450); Red Blood Count 5.39 10^6/uL (4.06-5.63); Red Cell Distribution Width 18.3 % (12-17); White Blood Count 13.3 10^3/uL (3.6-10.2)
[2023-09-14 06:45] LABS: Anion Gap 7 mmol/L (2-16); Blood Urea Nitrogen 35 mg/dL (6-24); CO2 Carbon Dioxide 25 mmol/L (22-32); Calcium 8.6 mg/dL (8.6-10.3); Chloride 100 mmol/L (101-111); Creatinine, Serum 1.05 mg/dL (0.67-1.17); Glucose 90 mg/dL (70-100); Sodium 132 mmol/L (135-145); eGFR CKD-EPI 74.5 (>60)
[2023-09-14 07:32] LABS: ABS Basophils 0.1 10^3/uL (0.0-0.1); ABS Lymphocytes 1.3 10^3/uL (1.0-4.8); ABS Neutrophils 10.9 10^3/uL (1.5-7.6); ABS Nucleated RBC 0.03 10^3/ul; Eosinophil % 0.4 %; Lymphocyte % 9.7 %; Nucleated Red Blood Cells % 0.2 %/100WBC (0.0-0.8); RBC Morphology Normal (Normal)
[2023-09-14] MEDS: HYDROcodone/ACET. 7.5/325 LIQ 15 ML UDC PO PRN (08:13)
[2023-09-14] MEDS: Nystatin SUSPENSION 100,000 UNITS/ML UDC SWISH SPIT SCH ×2 (08:15→13:48)
[2023-09-14 09:41] LABS: Potassium Redraw 5.1 mmol/L (3.5-5.0)
[2023-09-14 09:59] VITALS: BP 138/53
[2023-09-14 10:26] LABS: Magnesium 2.4 mg/dL (1.9-2.7)
[2023-09-14] MEDS ORDERED: Albuterol 2.5mg/3 ml (0.083%) NEB.SOLN INH SCH (21:00)
== END 2023-09-14 15:20 | disposition home or self-care (01) | DRG 720 ==
LOC: ED 13:52 → SUATTDRO 16:24 → EDHOLD 16:24 → ICU 09-08 12:06 → MEDTELE 09-12 20:15
PROVIDERS: ADMIT Internal Medicine Pulmonary Disease; ATTEND Student in an Organized Health Care Education/Training Program